=== PATIENT | female | born 1975 | race Caucasian/White ===

== ENCOUNTER 2021-08-15 15:07 | Outpatient (CLI) | payer BC | END 2021-08-15 15:08 | disposition home or self-care (01) | LOC: CSHCT 15:07 | PROVIDERS: ATTEND Psychiatry & Neurology Neurology | DX: I63.9 Cerebral infarction, unspecified (principal); E04.1 Nontoxic single thyroid nodule | CPT/HCPCS: 70496; 70498 ==